=== PATIENT | male | born 1980 | race Caucasian/White ===

== ENCOUNTER 2017-04-28 08:47 | Emergency (ER) | payer OTHER ==
[~2017-04-28] VITALS: Ht 167.6 cm; Wt 81.1 kg
[2017-04-28 08:51] VITALS: Ht 167.6 cm; Wt 81.1 kg
[2017-04-28] MEDS ORDERED: GABA800T PO (09:09)
[2017-04-28] MEDS ORDERED: BUPR-79 PO (09:09)
[2017-04-28] MEDS ORDERED: IBUP-1451 PO (09:09)
[2017-04-28] MEDS ORDERED: AMOX875T PO (10:06)
[2017-04-28 10:20] VITALS: BP 132/88; PULSE 89; TEMP 36.3; O2SAT 97
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
== END 2017-04-28 10:21 | disposition home or self-care (01) ==
LOC: C.EDB 08:49
DX: S00.31XA Abrasion of nose, initial encounter (principal); W22.8XXA Striking against or struck by other objects, initial encounter; Y93.89 Activity, other specified; Y99.1 Military activity; Z87.891 Personal history of nicotine dependence